=== PATIENT | female | born 1995 | race Caucasian/White ===

== ENCOUNTER 2016-12-06 01:43 | Inpatient (IN) | payer MEDICAID ==
[2016-12-06] MEDS ORDERED: Ampicillin 2 GM in Sodium Chloride 0.9% 100 ML IV ONE (20:00)
[2016-12-06] MEDS ORDERED: Sodium Chloride 0.9% 2.5 ML Syringe FLUSH PRN (20:02)
[2016-12-06] MEDS ORDERED: Nalbuphine 10 MG/1 ML Vial IVPUSH PRN (20:02)
[2016-12-06] MEDS ORDERED: Carboprost Tromethamine 250 MCG/1 ML Amp IM PRN (20:02)
[2016-12-06] MEDS ORDERED: Butorphanol 1 MG/ML SDV IVPUSH PRN (20:02)
[2016-12-06] MEDS ORDERED: Terbutaline 1 MG/ML SDV SUBCUT PRN (20:02)
[2016-12-06] MEDS ORDERED: Sodium Chloride 0.9% 10 ML Syringe FLUSH PRN (20:02)
[2016-12-06] MEDS ORDERED: Lidocaine 1% 50 ML MDV INJECT PRN (20:02)
[2016-12-06] MEDS ORDERED: Water For Irrigation,Sterile 1,000 ML Container IRR PRN (20:02)
[2016-12-06] MEDS ORDERED: Methylergonovine 0.2 MG/1 ML Amp IM PRN (20:02)
[2016-12-06] MEDS ORDERED: Misoprostol 200 MCG Tab PO PRN (20:02)
[2016-12-06] MEDS ORDERED: Oxytocin/Lactated Ringers 30 UNIT/500 ML BAG IV SCH ×2 (20:15)
[2016-12-06] MEDS ORDERED: Misoprostol 25 MCG (1/4 of 100 MCG) Tab VAG SCH (20:15)
[2016-12-06] MEDS: Lactated Ringers 1,000 ML IV SCH (20:40)
[2016-12-06] MEDS ORDERED: Ampicillin 2 GM in Sodium Chloride 0.9% 50 ML IV SCH (21:00)
[2016-12-06] MEDS: Misoprostol 25 MCG (1/4 of 100 MCG) Tab PO ONE (21:00)
[2016-12-06] MEDS: Misoprostol 25 MCG (1/4 of 100 MCG) Tab VAG PRN (21:01)
[2016-12-07] MEDS: Ampicillin 1 GM in Sodium Chloride 0.9% 50 ML IV SCH ×6 (00:59→19:59)
[2016-12-07] MEDS: Misoprostol 25 MCG (1/4 of 100 MCG) Tab VAG PRN ×3 (01:55→10:12)
[2016-12-07] MEDS: Lactated Ringers 1,000 ML IV SCH ×6 (04:59→21:10)
[2016-12-07] MEDS ORDERED: Misoprostol 25 MCG (1/4 of 100 MCG) Tab ONE (09:41)
[2016-12-07] MEDS: Misoprostol 25 MCG (1/4 of 100 MCG) Tab PO ONE (10:12)
--- NOTE | 2016-12-07 15:59 | PCM.PREANE ---
Preanesthetic Assessment - Anesthesia/Transfusion/Family Hx Anesthesia History: Prior Anesthesia Without Reaction - Review of Systems General: No Symptoms Pulmonary: No Symptoms Cardiovascular: No Symptoms Gastrointestinal: No Symptoms Neurological: No Symptoms Other: Reports: None - Physical Assessment Height: 5 ft 3 in Weight: 80.286 kg ASA Class: 2 Mental Status: Alert & Oriented x3 Airway Class: Mallampati = 2 Dentition: Reports: Normal Dentition Thyro-Mental Finger Breadths: 3 Mouth Opening Finger Breadths: 3 ROM/Head Extension: Full Lungs: Clear to Auscultation, Normal Respiratory Effort Cardiovascular: Regular Rate, Regular Rhythm - Lab Values: Laboratory Last Values WBC 9.12 K/uL (4.0-11.0) 12/06/16 20:30 RBC 4.00 M/uL (4.30-5.90) L 12/06/16 20:30 Hgb 11.5 g/dL (12.0-16.0) L 12/06/16 20:30 Hct 33.8 % (36.0-46.0) L 12/06/16 20:30 MCV 84.5 fL (80.0-98.0) 12/06/16 20:30 MCH 28.8 pg (27.0-32.0) 12/06/16 20:30 MCHC 34.0 g/dL (31.0-37.0) 12/06/16 20:30 RDW Std Deviation 43.0 fl (28.0-62.0) 12/06/16 20:30 RDW Coeff of Melany 14 % (11.0-15.0) 12/06/16 20:30 Plt Count 244 K/uL (150-400) 12/06/16 20:30 MPV 9.70 fL (7.40-12.00) 12/06/16 20:30 Nucleated RBC % 0.0 /100WBC 12/06/16 20:30 Nucleated RBCs # 0 K/uL 12/06/16 20:30 Blood Type O POSITIVE 12/06/16 20:30 Antibody Screen NEGATIVE 12/06/16 20:30 - Allergies Allergies/Adverse Reactions: Allergies Allergy/AdvReac Type Severity Reaction Status Date / Time No Known Allergies Allergy Verified 12/06/16 20:01 - Acknowledgements Anesthesia Type Planned: Epidural Pt an Appropriate Candidate for the Planned Anesthesia: Yes Alternatives and Risks of Anesthesia Discussed w Pt/Guardian: Yes Pt/Guardian Understands and Agrees with Anesthesia Plan: Yes PreAnesthesia Questionnaire HEENT History: Reports: Impaired Vision Cardiovascular History: Reports: None Respiratory History: Reports: None Gastrointestinal History: Reports: None Genitourinary History: Reports: UTI, Recurrent [employer] History: Reports: Musculoskeletal History: Reports: None Neurological History: Reports: None Psychiatric History: Reports: Depression Endocrine/Metabolic History: Reports: None Hematologic History: Reports: None Immunologic History: Reports: None Oncologic (Cancer) History: Reports: None Dermatologic History: Reports: None - Past Surgical History HEENT Surgical History: Reports: Tonsillectomy Other HEENT Surgeries/Procedures: Done in 2004 Female Surgical History: Reports: None - SUBSTANCE USE Smoking Status *Q: Former Smoker Tobacco Use Within Last Twelve Months: No Second Hand Smoke Exposure: No Recreational Drug Use History: No - CURRENT (IN HOUSE) MEDS Current Meds: Current Medications Butorphanol Tartrate (Stadol) 1 mg IVPUSH ASDIRECTED PRN PRN Reason: Pain Last Admin: 12/07/16 12:53 Dose: 1 mg Carboprost Tromethamine (Hemabate Ds) 250 mcg IM ASDIRECTED PRN PRN Reason: Post Hemorrhage Lactated Ringer's (Ringers, Lactated) 1,000 mls @ 150 mls/hr IV ASDIRECTED RAY Last Admin: 12/07/16 15:55 Dose: 999 mls/hr Oxytocin/Lactated Ringer's (Pitocin In Lr 30 Units/500 Ml) 30 unit in 500 mls @ 2 mls/hr IV TITRATE RAY; 2 MUNITS/MIN PRN Reason: Protocol Last Admin: 12/07/16 14:34 Dose: 2 munits/min, 2 mls/hr Ampicillin Sodium 1 gm/ Sodium (Chloride) 50 mls @ 100 mls/hr IV Q4H ARY Last Admin: 12/07/16 12:42 Dose: 100 mls/hr Lidocaine HCl (Xylocaine 1%) 50 ml INJECT .ONCE PRN PRN Reason: Laceration repair Methylergonovine Maleate (Methergine) 0.2 mg IM ASDIRECTED PRN PRN Reason: Post Hemorrhage Misoprostol (Cytotec) 200 mcg PO .ONCE PRN PRN Reason: Post Hemorrhage Misoprostol (Cytotec) 25 mcg VAG .ONCE RAY Misoprostol (Cytotec) 25 mcg VAG Q4H PRN PRN Reason: Cervical Ripening Last Admin: 12/07/16 10:12 Dose: 25 mcg Nalbuphine HCl (Nubain) 10 mg IVPUSH ASDIRECTED PRN PRN Reason: Pain (severe 7-10) Sodium Chloride (Saline Flush) 10 ml FLUSH ASDIRECTED PRN PRN Reason: Keep Vein Open Sodium Chloride (Saline Flush) 2.5 ml FLUSH ASDIRECTED PRN PRN Reason: Keep Vein Open Sterile Water (Sterile Water For Irrigation) 1,000 ml IRR ASDIRECTED PRN PRN Reason: delivery Terbutaline Sulfate (Brethine) 0.25 mg SUBCUT ASDIRECTED PRN PRN Reason: Tacysystole Discontinued Medications Oxytocin/Lactated Ringer's (Pitocin In Lr 30 Units/500 Ml) 30 unit in 500 mls @ 999 mls/hr IV TITRATE RAY PRN Reason: 999 MUNITS/MIN Stop: 12/06/16 20:46 Ampicillin Sodium 2 gm/ Sodium (Chloride) 100 mls @ 200 mls/hr IV ONETIME ONE Stop: 12/06/16 20:29 Last Admin: 12/06/16 20:58 Dose: 200 mls/hr Misoprostol (Cytotec) 25 mcg PO ONETIME ONE Stop: 12/06/16 20:21 Last Admin: 12/07/16 10:12 Dose: 25 mcg Misoprostol (Cytotec) Confirm Administered Dose 25 mcg .ROUTE .STK-MED ONE Stop: 12/07/16 09:42
[2016-12-07] MEDS ORDERED: fentaNYL 100 MCG/2 ML SDV ONE (16:02)
[2016-12-07] MEDS ORDERED: Ropivacaine HCl/PF 100 ML ONE (16:02)
[2016-12-07] MEDS ORDERED: Bupivacaine 0.5% 10 ML SDV ONE (22:16)
[2016-12-08] MEDS: Ampicillin 1 GM in Sodium Chloride 0.9% 50 ML IV SCH (00:10)
[2016-12-08] MEDS ORDERED: Acetaminophen 500 MG Tab PO ONE (00:38)
[2016-12-08] MEDS ORDERED: Ropivacaine HCl/PF 100 ML ONE (00:49)
[2016-12-08] MEDS ORDERED: Docusate Sodium 100 MG Cap PO PRN (02:36)
[2016-12-08] MEDS ORDERED: Bisacodyl 10 MG Supp RECTAL PRN (02:36)
[2016-12-08] MEDS ORDERED: Lanolin 100% Cream 7 GM Tube TOP PRN (02:36)
[2016-12-08] MEDS ORDERED: Acetaminophen 500 MG Tab PO PRN ×2 (02:36)
[2016-12-08] MEDS ORDERED: Witch Hazel Medicated Pads 40/Jar TOP PRN (02:36)
[2016-12-08] MEDS ORDERED: Ibuprofen 400 MG Tab PO PRN (02:36)
[2016-12-08] MEDS ORDERED: Benzocaine/Menthol 20%-0.5% Spray 78 GM Cannister TOP PRN (02:36)
--- NOTE | 2016-12-08 04:26 | OR ---
SURGEON: Edwina Smith MD DATE OF PROCEDURE: 12/08/2016 PREOPERATIVE DIAGNOSES: 1. Term postdates at 41 weeks and 1 day. 2. Group B streptococcus positive. 3. Maternal intrapartum fever. POSTOPERATIVE DIAGNOSES: 1. Term postdates at 41 weeks and 1 day. 2. Group B streptococcus positive. 3. Maternal intrapartum fever. 4. Delivered. PROCEDURE: 1. Postdates induction of labor. 2. Spontaneous vaginal delivery. 3. Repair of labial laceration. ANESTHESIA: Epidural. ESTIMATED BLOOD LOSS: 150 mL. COMPLICATIONS: None. DISPOSITION: Mother and baby stable in Labor and delivery room, bonding FINDINGS: Male infant, weight 3290 g, score 8 and 9 at 1 and 5 minutes respectively. Grossly normal placenta with 3-vessel cord. Right labial laceration. Maternal intrapartum fever, T-max of 101.2 approximately an hour before delivery. BRIEF HISTORY: Salas is a 21-year-old primigravida, who was admitted on the evening of 12/06 at 40 weeks and 5 days gestation for postdates induction of labor. Her care was otherwise uncomplicated, but she had a positive GBS screen. On admission, she was 1 cm dilated, 50% effaced, station -2. She received Cytotec for cervical ripening followed by Cook's intracervical balloon with oxytocin. The Cook's catheter dislodged spontaneously and at the time, she was 5 cm dilated, 70% effaced, station -2, on 6 milliunits per minute of oxytocin. Artificial rupture of membranes was performed with clear amniotic fluid and an IUPC was placed for accurate uterine contraction monitoring. She received multiple doses of ampicillin for a positive GBS screen. She also received epidural for pain management. Once she went into active labor, she progressed and became fully dilated. She spiked a temp with a T-max of a 101.2 approximately 1 hour prior to delivery. She received Tylenol 1 g and also gentamicin added to the antibiotics regimen. heart tracing remained category 1 with baseline of 160. She commenced active pushing. She pushed quite well and with 7 contractions, she brought the baby's head down to a +5 station and was set up for delivery in modified dorsal lithotomy position. PROCEDURE IN DETAIL: She had a spontaneous vaginal delivery of a live male infant in direct occipital anterior position, clear amniotic fluid at delivery, no nuchal cord. Anterior and posterior shoulders and the rest of the baby were delivered without difficulty. Baby was vigorous and cried spontaneously at . The baby was delivered onto the maternal abdomen in the presence of the attendant nursery nurse. Delayed cord clamping was performed and the cord was subsequently cut by the father of the baby. With delivery of the , oxytocin infusion was changed to titration for active management of third stage of labor. Cord blood and gas samples were obtained. Placenta was delivered by controlled cord traction and appeared to be complete and intact. Examination of the perineum revealed a right labial laceration, which was repaired with 3-0 Vicryl suture in continuous nonlocking stitches. The repair was hemostatic. Uterine massage was performed. The uterus was found to be well contracted below the umbilicus. The patient tolerated the procedure well. Sponge, instrument, and needle counts were correct. Placenta was sent off to pathology for analysis. ADUMVIV / CHINTANL /[id number] MYAH
[2016-12-08] MEDS: Ampicillin 2 GM in Sodium Chloride 0.9% 100 ML IV SCH ×3 (06:10→18:18)
[2016-12-08] MEDS: Ibuprofen 800 MG Tab PO PRN ×3 (06:15→23:51)
--- NOTE | 2016-12-08 07:21 | PCM48HPAN ---
Post Anesthesia Note - EVALUATION WITHIN 48HRS OF ANESTHETIC Vital Signs in Normal Range: No Patient Participated in Evaluation: Yes Respiratory Function Stable: Yes Airway Patent: Yes Cardiovascular Function Stable: Yes Hydration Status Stable: Yes Pain Control Satisfactory: Yes Nausea and Vomiting Control Satisfactory: Yes Mental Status Recovered: Yes - COMMENTS/OBSERVATIONS Free Text/Narrative:: Pt had fever of 101.2 towards the end of her labor. Ampicillin and Gentamycin have been started by Dr Smith
[2016-12-08] MEDS: oxyCODONE 5 MG Tab PO PRN ×5 (09:23→23:52)
[2016-12-09 07:54] VITALS: BP 118/66
--- NOTE | 2016-12-09 07:57 | PCM.PNPP ---
- General Info Date of Service: 12/09/16 Functional Status: Reports: Pain Controlled, Tolerating Diet, Ambulating, Urinating - Review of Systems General: Denies: Fever, Malaise, Chills HEENT: Denies: Headaches Pulmonary: Denies: Shortness of Breath, Pleuritic Chest Pain Cardiovascular: Denies: Chest Pain, Palpitations, Dyspnea on Exertion Gastrointestinal: Denies: Abdominal Pain Genitourinary: Denies: Dysuria, Frequency, Urgency, Incontinence, Retention Psychiatric: Denies: Mood Lability, Anxiety - General Info Date of Service: 12/09/16 - Patient Data Vital Signs - Most Recent: Last Vital Signs Temp 36.7 C 12/09/16 04:53 Pulse 63 12/09/16 04:53 Resp 16 12/09/16 04:53 BP 110/70 12/09/16 04:58 Pulse Ox 95 12/09/16 04:53 Weight - Most Recent: 177 lb Lab Results - Last 24 Hours: Laboratory Results - last 24 hr 12/09/16 Range/Units 05:22 Hgb 9.9 L (12.0-16.0) g/dL Hct 29.5 L (36.0-46.0) % Med Orders - Current: Current Medications Acetaminophen (Tylenol Extra Strength) 500 mg PO Q4H PRN PRN Reason: Pain Acetaminophen (Tylenol Extra Strength) 1,000 mg PO Q4H PRN PRN Reason: Pain Last Admin: 12/08/16 16:01 Dose: 1,000 mg Benzocaine/Menthol (Dermoplast Pain Relief 20%-0.5% [place]) 78 gm TOP ASDIRECTED PRN PRN Reason: Perineal Comfort Measure Last Admin: 12/08/16 03:30 Dose: 1 spray Bisacodyl (Dulcolax) 10 mg RECTAL .ONCE PRN PRN Reason: Constipation Docusate Sodium (Colace) 100 mg PO BID PRN PRN Reason: Constipation Emollient Ointment (Lansinoh Hpa) 0 gm TOP ASDIRECTED PRN PRN Reason: Sore Nipples Ibuprofen (Motrin) 400 mg PO Q4H PRN PRN Reason: Pain Ibuprofen (Motrin) 800 mg PO Q6H PRN PRN Reason: Pain Last Admin: 12/08/16 23:51 Dose: 800 mg Oxycodone HCl (Oxycodone) 5 mg PO Q2H PRN PRN Reason: Pain Last Admin: 12/08/16 23:52 Dose: 5 mg Witch Ashly (Tucks) 1 pad TOP ASDIRECTED PRN PRN Reason: comfort care Discontinued Medications Acetaminophen (Tylenol Extra Strength) 1,000 mg PO ONETIME ONE Stop: 12/08/16 00:39 Last Admin: 12/08/16 00:54 Dose: 1,000 mg Bupivacaine HCl (Sensorcaine-Mpf 0.5%) Confirm Administered Dose 10 ml .ROUTE .STK-MED ONE Stop: 12/07/16 22:17 Last Admin: 12/09/16 02:31 Dose: Not Given Butorphanol Tartrate (Stadol) 1 mg IVPUSH ASDIRECTED PRN PRN Reason: Pain Last Admin: 12/07/16 12:53 Dose: 1 mg Carboprost Tromethamine (Hemabate Ds) 250 mcg IM ASDIRECTED PRN PRN Reason: Post Hemorrhage Fentanyl (Sublimaze) Confirm Administered Dose 100 mcg .ROUTE .STK-MED ONE Stop: 12/07/16 16:03 Last Admin: 12/09/16 02:30 Dose: Not Given Lactated Ringer's (Ringers, Lactated) 1,000 mls @ 150 mls/hr IV ASDIRECTED RAY Last Admin: 12/07/16 21:10 Dose: 150 mls/hr Oxytocin/Lactated Ringer's (Pitocin In Lr 30 Units/500 Ml) 30 unit in 500 mls @ 999 mls/hr IV TITRATE RAY PRN Reason: 999 MUNITS/MIN Stop: 12/06/16 20:46 Last Admin: 12/09/16 02:29 Dose: Not Given Oxytocin/Lactated Ringer's (Pitocin In Lr 30 Units/500 Ml) 30 unit in 500 mls @ 2 mls/hr IV TITRATE RAY; 2 MUNITS/MIN PRN Reason: Protocol Last Titration: 12/08/16 01:45 Dose: 500 munits/min, 500 mls/hr Ampicillin Sodium 2 gm/ Sodium (Chloride) 100 mls @ 200 mls/hr IV ONETIME ONE Stop: 12/06/16 20:29 Last Admin: 12/06/16 20:58 Dose: 200 mls/hr Ampicillin Sodium 1 gm/ Sodium (Chloride) 50 mls @ 100 mls/hr IV Q4H [facility] Last Admin: 12/08/16 00:10 Dose: 100 mls/hr Ropivacaine (Naropin 0.2%) Confirm Administered Dose 100 mls @ as directed .ROUTE .[facility] ONE Stop: 12/07/16 16:03 Last Admin: 12/09/16 02:30 Dose: Not Given Gentamicin Sulfate 120 mg/ (Sodium Chloride) 53 mls @ 100 mls/hr IV ONETIME ONE Stop: 12/08/16 01:31 Last Admin: 12/08/16 01:14 Dose: 100 mls/hr Ropivacaine (Naropin 0.2%) Confirm Administered Dose 100 mls @ as directed .ROUTE .[facility] ONE Stop: 12/08/16 00:50 Last Admin: 12/09/16 01:48 Dose: Not Given Ampicillin Sodium 2 gm/ Sodium (Chloride) 100 mls @ 200 mls/hr IV Q6H [facility] Stop: 12/08/16 18:29 Last Admin: 12/08/16 18:18 Dose: 200 mls/hr Gentamicin Sulfate 120 mg/ (Sodium Chloride) 53 mls @ 100 mls/hr IV Q8H [facility] Stop: 12/08/16 17:32 Last Admin: 12/08/16 16:39 Dose: 100 mls/hr Lidocaine HCl (Xylocaine 1%) 50 ml INJECT .ONCE PRN PRN Reason: Laceration repair Methylergonovine Maleate (Methergine) 0.2 mg IM ASDIRECTED PRN PRN Reason: Post Hemorrhage Misoprostol (Cytotec) 200 mcg PO .ONCE PRN PRN Reason: Post Hemorrhage Misoprostol (Cytotec) 25 mcg VAG .ONCE [facility] Misoprostol (Cytotec) 25 mcg VAG Q4H PRN PRN Reason: Cervical Ripening Last Admin: 12/07/16 10:12 Dose: 25 mcg Misoprostol (Cytotec) 25 mcg PO ONETIME ONE Stop: 12/06/16 20:21 Last Admin: 12/07/16 10:12 Dose: 25 mcg Misoprostol (Cytotec) Confirm Administered Dose 25 mcg .ROUTE .[facility] ONE Stop: 12/07/16 09:42 Last Admin: 12/09/16 02:30 Dose: Not Given Nalbuphine HCl (Nubain) 10 mg IVPUSH ASDIRECTED PRN PRN Reason: Pain (severe 7-10) Sodium Chloride (Saline Flush) 10 ml FLUSH ASDIRECTED PRN PRN Reason: Keep Vein Open Sodium Chloride (Saline Flush) 2.5 ml FLUSH ASDIRECTED PRN PRN Reason: Keep Vein Open Sterile Water (Sterile Water For Irrigation) 1,000 ml IRR ASDIRECTED PRN PRN Reason: delivery Terbutaline Sulfate (Brethine) 0.25 mg SUBCUT ASDIRECTED PRN PRN Reason: Tacysystole - Infant Interaction Disposition, : [place] in Room with Family Feeding: Breastfed ; Nursed Well Support Person: Significant Other - Recovery Exam Fundal Tone: Firm Fundal Level: At Umbilicus Fundal Placement: Midline Lochia Amount: Scant Lochia Color: Rubra/Red Perineum Description: Intact, Minimal Bruising/Swelling Episiotomy/Laceration: Approximated Bladder Status: Voiding Urinary Elimination: Voided - Exam General: Alert, Oriented Lungs: Clear to Auscultation, Normal Respiratory Effort Cardiovascular: Regular Rate, Regular Rhythm GI/Abdominal Exam: Normal Bowel Sounds Extremities: Non-Tender, Pedal Edema Psy/Mental Status: Alert, Normal Affect, Normal Mood - Problem List & Annotations (1) Vaginal delivery SNOMED Code(s): 004588419 Code(s): O80 - ENCOUNTER FOR FULL-TERM UNCOMPLICATED DELIVERY Status: Acute Current Visit: Yes - Problem List Review Problem List Initiated/Reviewed/Updated: Yes - Assessment Assessment:: PPD#1 s/p , stable and afebrile Clinically stable for discharge - Plan Plan:: Discharge instructions reviewed Bleeding and infection precautions given Continue PNV Nothing in the vagina for 6 wks Follow up in 6 weeks in the clinic
[2016-12-09] MEDS: Ibuprofen 800 MG Tab PO PRN (10:49)
== END 2016-12-09 11:45 | disposition home or self-care (01) | DRG 774 ==
LOC: MW.OB 01:43 → INTOOBSV 19:31 → MW.OB 19:31 → OBSVTOIN 12-08 01:43 → MW.OB 12-08 13:55
PROVIDERS: ADMIT Obstetrics & Gynecology; ATTEND Obstetrics & Gynecology
PROC: 10E0XZZ Delivery of Products of Conception, External Approach (ICD-10-PCS; principal; 2016-12-08)
PROC: 3E0P7GC Introduction of Other Therapeutic Substance into Female Reproductive, Via Natural or Artificial Opening (ICD-10-PCS; 2016-12-08)
PROC: 10907ZC Drainage of Amniotic Fluid, Therapeutic from Products of Conception, Via Natural or Artificial Opening (ICD-10-PCS; 2016-12-08)
PROC: 0HQ9XZZ Repair Perineum Skin, External Approach (ICD-10-PCS; 2016-12-08)
DX: O48.0 Post-term pregnancy (principal); O75.2 Pyrexia during labor, not elsewhere classified; O70.0 First degree perineal laceration during delivery; O99.824 Streptococcus B carrier state complicating childbirth; Z3A.41 41 weeks gestation of pregnancy; Z37.0 Single live birth
CPT/HCPCS: 36415; 59025; 85014; 85018; 85027; 86850; 86900; 86901; 88307; A9270-GY; J0290; J0595; J1580; J2795; J3010; J7030; J7050; J7120